=== PATIENT | female | born 1960 | race Caucasian/White ===

== ENCOUNTER 2024-10-01 06:05 | Day surgery (SDC) | payer BC, SELFPAY ==
--- NOTE | 2024-09-30 14:53 | W.PM.DSUDISC ---
Date of service: 10/01/24 Time of Service: 08:05 Discharge Plan Disposition Patient Disposition: Home Condition: Good Discharge Details Reason For Visit: screening colonoscopy Attending Provider: Josue Yan Primary Care Provider: Clara Valencia Home Meds and New Rx's Prescriptions: Continued montelukast 10 mg tablet 10 mg PO DAILY hydroxychloroquine 100 mg tablet 200 mg PO BID fluticasone propionate 50 mcg/actuation spray,suspension 1 spray intranasal DAILY Rx Instructions: administer into each nostril Discontinued bisacodyl [Dulcolax (bisacodyl)] 5 mg tablet,delayed release (DR/EC) 5 mg PO ONCE Qty: 4 0RF Rx Instructions: Take per colonoscopy instructions provided by ordering providers office polyethylene glycol 3350 17 gram/dose powder 17 g PO ONCE Qty: 238 0RF Rx Instructions: Take per colonoscopy instructions provided by ordering providers office Discharge Instructions Instructions: Colon polyps Additional Instructions: Parris, I hope you make a quick recovery from this colonoscopy. During the course of the procedure, you did have a little bit of vomiting, so we went ahead and put a breathing tube in to keep you safe during the remainder of the colonoscopy. Everything else went very smoothly. Your prep was excellent and I could see everything just fine. I found and removed 4 polyps today. All of these are quite small, and all will be tested since polyps, different varieties, and the nature of the polyp is what we used to determine the timing of your next colonoscopy. 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 This is basically a skin tag on the inside. This is not at all dangerous, and I left in place today as removal of these can be quite painful. The results from the polyp analysis usually take a week or 2 to get back, but once my office has them, we will be in touch with recommendations for your next colonoscopy. If you need anything or have any questions at all, please do not hesitate to ask. 1. If tolerated, consume a soft, low fiber diet for 1-2 days. 2[address] Do not drive, drink alcohol, operate machinery, make critical decisions, or do activities that require coordination or balance for 24 hours. 3. Because air was put into your colon during the procedure, expelling air from your rectum (passing gas or farting) is normal. 4. You may not have a bowel movement for 1-3 days because of the colonoscopy prep. This is normal. 5. Go directly to the emergency room if you notice any of the following: Develop chills (warm to touch), or if you have a thermometer and your temperature is above 101 Difficulty breathing or difficultly swallowing Persistent vomiting Severe abdominal pain, other than gas cramps Severe chest pain Black, tarry stools Any bleeding ? exceeding one tablespoon 6. Call your physician if the site where your intravenous was started becomes red, swollen, painful, and warm to touch. 7. Your physician has reviewed your pre-procedure medications. Please continue to take those medications as previously ordered. You will be given specific information/education regarding any changes to your medications before leaving. Activity:: Activity as Tolerated Diet:: As Tolerated Discharge Orders Discharge Orders: Discharge Order (Routine); Ordered 09/30/24 Ordered By: Josue Yan DS: Diagnosis Discharge Diagnosis (1) Encounter for screening colonoscopy: Status: Acute Asessment and Plan: Follow-up on polypectomy results
--- NOTE | 2024-09-30 14:55 | COLE_ITS ---
Date of service: 10/01/24 Time of Service: 08:07 Colonoscopy Report Date of procedure: 10/01/24 Pre-op diagnosis general: screening colonsocopy Post-op diagnosis procedure note: other (Colon polyps) Procedure: colonoscopy with polypectomy Surgeon: Josue Yan Anesthesia Type: General:No Airway Estimated blood loss (mL): 10 Pathology: other (0.25 cm rectal polyp, 0.25 cm flat polyp at 15 cm, 0.25 cm flat polyp at 25 cm, 0.25 cm flat cecal polyp) Complications: None Disposition: same day Indications: Parris is a 64 year old woman who needs her next screening colonoscopy Prep: Miralax/Dulcolax Procedure Start Time: 07:33 Procedure End Time: 07:56 Retraction Time: 15 Findings: Anal fibroepithelial polyp; 0.25 cm rectal polyp, 0.25 cm flat polyp at 15 cm, 0.25 cm flat polyp at 25 cm, 0.25 cm flat cecal polyp Procedure Description: After the induction of anesthesia, and with the patient in left lateral decubitus position, I began by performing an external anorectal exam.? Perineum and skin were normal, as was the anal verge.? There was no evidence of external hemorrhoids.? Next, I performed a digital rectal exam.? There is a small palpable abnormality in the top portion of the anal canal.? Next, I advanced a colonoscope into the rectal vault.? I performed retroflexion.? There is a benign-appearing 0.5 cm fibroepithelial polyp. Using insufflation, I then advanced the colonoscope beyond the rectal folds and into the sigmoid colon before advancing towards the cecum.? Around 15 cm from the anal verge, right at the top portion of the rectum was a 0.5 cm flat polyp. This was retrieved with cold forceps polypectomy. As we were proceeding retrograde through the ascending colon, the patient did experience a small amount of vomiting. It was appreciated immediately, and well-controlled. Airway was suctioned. At that point, with a well-prepped colon, in very close proximity to the cecum, we felt intubation for completion of the procedure would be the safest option. She underwent rapid sequence intubation without any difficulty. We continued with the procedure. The scope was noted to be in the cecum by identification of the ileocecal valve and appendiceal orifice.? There was a 0.25 cm flat polyp within the cecum. This was removed with cold forceps polypectomy with minimal bleeding. I then began withdrawing the colonoscope using repeated irrigation as necessary for full evaluation of the colonic mucosa. Another polyp was found at 25 cm. This was also flat and easily removed with cold forceps. Once the scope was withdrawn to the level of the rectum, great care was taken to examine portions of the rectal folds.? One last polyp was detected in the rectum. This was less than 0.25 cm in its biggest dimension. This was removed with cold forceps as well. Finally, the scope was withdrawn and the patient was brought to the same-day surgery recovery unit as the anesthetic wore off. ?The findings and instructions were shared with the patient prior to discharge. [place] Bowel Prep [place] Bowel Prep Right Colon: 2 Left Colon: 3 Transverse Colon: 3 Total Score: 8
[2024-10-01] VITALS (15 sets, daily range): BP systolic 104–137; BP diastolic 49–88; PULSE 76–103; RESP 14–25; TEMP 36.4–36.6; O2SAT 95–99; BMI 27.3
[2024-10-01] MEDS: Normal Saline Flush 10 ML SYR IV (06:40)
--- NOTE | 2024-10-01 06:58 | W.ANESPRE ---
General Info Date of Service Date Performed: 10/01/24 Height: 5 ft 1 in Weight: 65.5 kg Body Mass Index (BMI): 27.3 Surgical Procedure: Operation Date: 10/01/24 07:35 Proposed Procedure Side Surgeon pasha Yan MD Meds Allergies and Home Medications Allergies Allergy/AdvReac Type Severity Reaction Status Date / Time phenobarbital Allergy Intermediate Visual Verified 10/01/24 06:13 Disturbances Home Medication ?Medication ?Instructions ?Recorded fluticasone propionate 50 1 spray intranasal DAILY 08/19/24 mcg/actuation nasal spray,suspension hydroxychloroquine 100 mg tablet 200 mg PO BID 08/19/24 montelukast 10 mg tablet 10 mg PO DAILY 08/19/24 Current Visit Medications: Current Medications Generic Name Dose Route Start Last Admin Trade Name Freq PRN Reason Stop Dose Admin IV Miscellaneous Supplies 1 each 10/01/24 06:00 Iv Access IV 10/01/24 23:59 DIRECTED JUAN Ondansetron HCl 4 mg 09/30/24 14:56 Ondansetron 4 Mg/2 Ml Vial IVP 10/30/24 14:55 Q4H PRN PRN Nausea / Vomiting Sodium Chloride 0 ml 10/01/24 06:00 10/01/24 06:40 Normal Saline Flush 10 Ml Syr IV 10/01/24 23:59 10 ml PRN PRN Administration Sodium Chloride 0 ml 10/01/24 06:00 Normal Saline 10 Ml Vial IJ 10/01/24 23:59 DIRECTED PRN Sterile Water 0 ml 10/01/24 06:00 Water,Injection,Sterile 10 Ml Vial IJ 10/01/24 23:59 DIRECTED PRN PFSH Active Problems Active Problems: Problem Status Onset Code Encounter for screening colonoscopy Acute Z12.11 Medical History Medical History Osteoporosis Nontoxic thyroid nodule Hyperlipidemia Cervical radiculopathy Arthropathic psoriasis Surgical History Surgical History Hx of cholecystectomy Hx of section x2 Hx of tubal ligation Tobacco Smoking/Tobacco Use Status: Current every day Tobacco Type: cigarettes Alcohol Alcohol Intake: current Alcohol intake frequency: 0-2 drinks per day Alcohol type: beer Substance Use Substance use: Never Substance use type: does not use Vital Signs and Lab Results Vital Signs Most Recent Vital Signs in EMR: Most Recent Vital Signs Temp Pulse Resp BP Pulse Ox 36.6 C 87 18 115/88 98 10/01/24 06:26 10/01/24 06:26 10/01/24 06:26 10/01/24 06:26 10/01/24 06:26 Lab Results Blood Type / Crossmatch: No Data to Display Complete Blood Count: No Data to Display Complete Metabolic Panel: No Data to Display Liver Function Panel: No Data to Display Coagulation Panel: No Data to Display Cardiac Panel: No Data to Display Arterial Blood Gas: No Data to Display Venous Blood Gas: No Data to Display Pancreas Panel: No Data to Display Thyroid Panel: No Data to Display Infectious Disease: No Data to Display Blood Cultures: No Data to Display Toxicology Panel: No Data to Display Anesthesia Assessment and Plan Anesthesia History Personal History: No History of Anesthesia Complications Family History: No Family History of Anesthesia Complications Exercise Tolerance Exercise Tolerance: Metabolic Equivalents>4 Pertinent Negatives Pertinent Negatives: No Symptoms of GERD, No Major Cardiovascular Symptoms or Complaints, No Major Pulmonary Symptoms or Complaints and No History of CVA/TIA Cardiac & Pulmonary Exam Cardiac Exam: Normal S1/S2 Heart Sounds Pulmonary Exam: Clear Bilateral Breath Sounds Implantable Cardiac Device Does patient have a Pacemaker or an ICD?: No Airway Exam Known Difficult Airway: No Mallampati Class: 2 Mouth Opening: Normal (> 3cm) Thyromental Distance: Greater than 3 cm Neck Range of Motion: Full ROM Neck Circumference: Normal Teeth Condition: Removable Dentures/Plates Upper (partial) and Removable Dentures/Plates Lower (partial) ASA Classification ASA Score: ASA 2 Emergency Case?: No NPO Status NPO Status: NPO Clears >2 hours, Solids >8 hours Anesthesia Plan Resuscitation Status: Full Code Anesthesia Technique: General Anesthesia Airway Planned: Natural Airway Monitors Used: Standard Monitors
--- NOTE | 2024-10-01 07:05 | HPE_ITS ---
Assessment and Plan Assessment and plan (1) Encounter for screening colonoscopy: Status: Acute Assessment and plan: I reviewed the plan for a screening colonoscopy as part of routine health maintenance with Parris. She had the chance to ask any questions about the procedure. She was able to provide informed consent, we can proceed with colonoscopy as planned. History of Present Illness History of Present Illness Chief Complaint: Screening colonoscopy Narrative: 64 y/o female with history of asthma presents for colonoscopy screening pre-op. Her last screening was 10+ years ago in [facility]. She denies a family history of colon cancer. She reports having some loose stools recently, however that has resolved. Denies having any bloody or black tarry stools, abdominal pain, diarrhea or constipation. She denies constitutional symptoms. She denies chest pain, palpitations, dyspnea or dyspnea with exertion. She denie s prior history or family history of adverse reactions or complications with anesthesia. The patient denies any history of stroke, DE, seizures, bleeding or clotting disorders. She denies having any implanted metal in her body. Since her last office encounter, there have been no major interval changes to the history or physical exam. She has no new complaints. ON LICENSE OF [facility] All Active Problems Encounter for screening colonoscopy (Acute) Medical History Osteoporosis Nontoxic thyroid nodule Hyperlipidemia Cervical radiculopathy Arthropathic psoriasis Surgical History Hx of cholecystectomy Hx of section x2 Hx of tubal ligation Social History (Updated 09/01/24 @ 10:52 by MARCIE Gamino) Smoking/Tobacco Use Status: Current every day Tobacco Type: cigarettes Smoking risk assessment performed?: Yes Alcohol Intake: current Alcohol Intake frequency: 0-2 drinks per day Alcohol type: beer Drug use: Never Substance use type: does not use Housing: house Do you feel safe at home: Yes Do you feel safe in your relationship?: Yes Meds Allergies and Home Medications Allergies Allergy/AdvReac Type Severity Reaction Status Date / Time phenobarbital Allergy Intermediate Visual Verified 10/01/24 06:13 Disturbances Home Medications ?Medication ?Instructions ?Recorded ?Confirmed ?Type fluticasone propionate 50 1 spray intranasal DAILY 08/19/24 10/01/24 History mcg/actuation nasal spray,suspension hydroxychloroquine 100 mg tablet 200 mg PO BID 08/19/24 10/01/24 History montelukast 10 mg tablet 10 mg PO DAILY 08/19/24 10/01/24 History Exam Const General: cooperative, healthy appearing and not in acute distress Neck Neck: normal visual inspection, no lymphadenopathy and supple Resp Effort & Inspection: normal respiratory effort Auscultation: clear to auscultation bilaterally Cardio Jugular venous pressure: no JVD Rate: regular rate Rhythm: regular rhythm Heart Sounds: S1 normal and S2 normal GI Inspection: normal to inspection Palpation: soft, no guarding, no hernias and nontender Percussion: normal to percussion Auscultation: normal bowel sounds Neuro General: patient alert, patient awake and patient oriented x3 Psych Appearance: grossly normal Results Last Vital Signs Temp 97.9 F 10/01/24 06:26 Pulse 87 10/01/24 06:26 Resp 18 10/01/24 06:26 BP 115/88 10/01/24 06:26 Pulse Ox 98 10/01/24 06:26
--- NOTE | 2024-10-01 07:34 | BOWEL_PTH ---
PATIENT: Parris Deng LOC: [facility] U#:[id number] AGE/SX: 64/F ROOM: RE10/01/[address]: Josue Yan MD : 1960 BED: DIS: 10/01/2024 SPEC #: [id number] RECD: 10/01/24 12:34 STATUS: [facility] #: [id number] CIERA: 10/01/24 07:[address]: Josue Yan DEPT: Surgical Specimen RECD BY: Nguyen Haas ENTERED: 10/01/24 12:36 SP TYPE: Bowel OTHR DR: Clara Valencia Tissues: 1 - BIOPSY BOWEL 2 - BIOPSY BOWEL 3 - BIOPSY BOWEL 4 - BIOPSY BOWEL Procedures: GROSS AND MICRO LEVEL 4 Comments: [id number]
--- NOTE | 2024-10-01 09:35 | W.ANESPOSTOP ---
Postoperative Evaluation Date, Time and Location Date Performed: 10/01/24 Time Performed: 09:35 Patient Location: Day Surgery Unit Vital Signs Most Recent Imported Vital Signs: Most Recent Vital Signs Temp Pulse Resp BP Pulse Ox 36.4 C L 88 14 115/66 97 10/01/24 08:44 10/01/24 08:44 10/01/24 08:44 10/01/24 08:44 10/01/24 08:44 Pain Score Most Recent Pain Score: Most Recent Pain Score Pain Level 0 10/01/24 09:15 Assessment Mental Status: Awake (Alert & Oriented to Patient Baseline) Airway and Respiratory Function: Patent airway with normal (patient baseline) respiratory exam (Some rhonchi in bases per RN. Working with IS to a volume of 2L. Recommended she take it home and use for the next 24 hours while awake (6-8 times per hour). ) Cardiovascular Function: Hemodynamically Stable Hydration Status: Adequately Hydrated Nausea & Vomiting: No Nausea or Vomiting Pain: Pt. Denies Any Pain Peripheral Nerve Block: Patient did not receive a nerve block Postoperative Comments:: Patient and spouse at bedside, all questions answered. Patient appearing calm and collected, respiratory exam back to her baseline. Sending home with IS and with aspiration pneumonia instructions. Discussed routes to get in contact with Anesthesia. Patient and spouse demonstrated understanding. Recommend patient not undergo General with Natural airway in the future, patient should be intubated. Patient demonstrated understanding.
== END 2024-10-01 09:44 | disposition home or self-care (01) ==
LOC: SUR 06:05
PROVIDERS: PCP Internal Medicine; Visit Provider Surgery
PROC: 0DJD8ZZ Inspection of Lower Intestinal Tract, Via Natural or Artificial Opening Endoscopic (ICD-10-PCS; CPT 45378; principal; 2024-10-01 07:30)
DX: Z12.11 Encounter for screening for malignant neoplasm of colon (principal); D12.0 Benign neoplasm of cecum; K62.1 Rectal polyp
CPT/HCPCS: 45380; 88305; J2704